=== PATIENT | male | born 1950 | race African-American/Black ===

== ENCOUNTER 2018-03-26 10:37 | Inpatient (IN) | payer MEDICARE ==
[2018-03-26 12:05] LABS: PTT 25.5 SEC (22.9-36.1); Prothrombin Time 13.6 SEC (12.0-14.7)
[2018-03-26 12:14] LABS: #Eosinphils 0.1 thou/uL (0.0-0.7); #Lymphocytes 2.4 thou/uL (1.20-3.40); #Monocytes 0.5 thou/uL (0.11-0.59); #Neutrophils 1.9 thou/uL (1.40-6.50); %Basophils 0.8 % (0.0-1.0); %Eosinophils 1.6 % (0.0-10.0); %Lymphocytes 49.3 % (21.0-51.0); %Monocytes 9.7 % (0.0-10.0); %Neutrophils 38.6 % (42.0-75.0); Hemoglobin 15.3 g/dL (14.0-18.0); Large Platelets SLIGHT; Mean Corpuscular HGB CONC 31.4 g/dL (32.0-36.0); Mean Corpuscular Hemoglobin 27.7 pg (27.0-31.0); Mean Corpuscular Volume 88.3 fL (78.0-98.0); Mean Platelet Volume 10.9 fL (7.4-10.4); PLT Morphology Comment Appears Decreased; Platelet Count 101 thou/uL (130-400); RBC Distribution Width 12.6 % (11.5-14.5); RBC Morphology Normal; Red Blood Cell (RBC) Count 5.51 mill/uL (4.70-6.10); White Blood Cell (WBC) Count 4.9 thou/uL (4.8-10.8)
[2018-03-26 13:41] LABS: ALT (SGPT) 15 U/L (8-55); AST (SGOT) 18 U/L (5-34); Albumin 3.9 g/dL (3.4-4.8); Alkaline Phosphatase 44 U/L (40-150); Anion Gap 13 mmol/L (10-20); BUN (Urea Nitrogen) 10 mg/dL (8.4-25.7); Bilirubin, Total 0.7 mg/dL (0.2-1.2); Calc. Creatinine Clearance 0 mL/min (70-130); Calcium 8.7 mg/dL (7.8-10.44); Carbon Dioxide 20 mmol/L (23-31); Chloride 107 mmol/L (98-107); Estimated GFR-MDRD Greater than 90; Globulin 2.7 g/dL (2.4-3.5); Glucose 91 mg/dL (80-115); Potassium 4.4 mmol/L (3.5-5.1); Protein, Total 6.6 g/dL (5.8-8.1); Sodium 136 mmol/L (136-145)
[2018-03-26] MEDS ORDERED: Acetaminophen 325 MG TAB PO PRN (15:30)
--- NOTE | 2018-03-26 17:34 | HP ---
PRIMARY CARE PHYSICIAN: Jani Monet M.D. CHIEF COMPLAINT: Right facial droop. HISTORY OF PRESENT ILLNESS: Mr. Zimmer is a pleasant 67-year-old gentleman who has no significant p ast medical history other than BPH. He says that on Thursday he started having a headache across the f rontal region of his head. This was while he was watching TV with his . He denies having any ki nd of stress that precipitated the headache. He did not think much of it. He did not have any feeli ngs of dizziness, no weakness, no nausea, no vomiting, or any other symptoms during that time. Howev er, his noticed that his mouth seems to be crooked and his speech was slurred off and on, and he seemed to be drooling from one side of his mouth. His daughter also noted the same thing, but not u ntil the night prior to admission. He also says that he seemed a little bit slow as far as his movem ents and it seems like he did not know where he was putting his arm at times. For this reason, they felt it was best that he come to the emergency room for evaluation. He was evaluated in the ER in [facility] and CT findings were consistent with possible stroke, and [facility]. The patient himself only noted the weakness on the side of the face. H e did not notice any problems with regards to upper extremity or lower extremity weakness. He says n othing like this has ever happened to him before. He does say that he was told that he had a small " pin hole" in his heart. His doctor was aware of this and apparently had an echocardiogram, but this was about 6 years ago. REVIEW OF SYSTEMS: All systems were reviewed and are negative except for that mentioned in the histo ry of present illness. PAST MEDICAL HISTORY: Significant for BPH. PAST SURGICAL HISTORY: Negative. ALLERGIES: No known drug allergies. SOCIAL HISTORY: He is , has 3 children. He smokes about 1/3 of a pack of cigarettes a day an d he smoked for the last 30 years. He also drinks about a 6 pack every day or so. He would like to be a FULL CODE. FAMILY HISTORY: Significant for cerebrovascular accident, hypertension, and diabetes. CURRENT MEDICATIONS: Include Flomax 0.4 mg daily. PHYSICAL EXAMINATION: GENERAL: He is alert and oriented. He appears to be in no acute distress. He is well developed and well nourished. VITAL SIGNS: Blood pressure was 178/63, heart rate 40, respiratory rate of 20, temperature is 97.4. HEENT: His pupils are equal, round, and reactive. Extraocular muscles are intact. His sclerae are anicteric. Throat, there is no erythema, no exudates. On his tympanic membranes, he had quite a bit of wax in the external canal. Therefore, the tympanic membranes were not visualized. NECK: No adenopathy, no bruits. LUNGS: Clear to auscultation bilaterally. There is no wheezing, no rales, no rhonchi. CARDIOVASCULAR: He had a normal S1 and S2. I did not appreciate S3 or S4. His heart rate is bradyc ardic. He did have a significant 2/6 systolic murmur which was heard best in the pulmonic area and i t did radiate across the precordium. There were no gallops, no rubs. ABDOMEN: Soft, it is nontender, nondistended. Positive for bowel sounds. There is no rebound, no g uarding, no appreciable organomegaly. EXTREMITIES: There is no clubbing or cyanosis, no edema. NEUROLOGICAL: He had a left facial droop. His other cranial nerves were intact. His muscle strengt h is 5/5 in both his upper and lower extremities; however, he had a slightly diminished team leader surgery strength and dorsal and plantar flexion on the left upper extremity. The left lower extremity was about equi vocal and there was negative Babinskis. Reflexes were 2+ and symmetric. SKIN AND INTEGUMENT: There was no skin changes. No rash. MUSCULOSKELETAL: There was no calf tenderness, no joint effusion. LABORATORY AND X-RAY: On his EKG, this is by my reading, sinus bradycardia. The heart rate is in th e 40s. He had some voltage criteria for LVH and he did have some T-wave inversions in II, III, and A VF. CT scan is reported as having evidence of a parietal infarct; however, this will need to be revi ewed with the [facility] records. On his CBC, the white blood cell count was 4.9, hemoglobin 15.3, he matocrit was 48.6, platelet count was 101. INR was 1.0. His sodium was 136, potassium 4.4, chloride is 107, CO2 is 20, BUN of 10, creatinine 0.95, glucose was 91. ASSESSMENT AND PLAN: 1. Acute infarct. The patient will be admitted to the Stroke Unit. He has already been given aspir in in the emergency room, full dose. Unfortunately, his symptoms have been going on for the past 4 d ays, so therefore he is out of the window for any acute intervention such as TPA or emergency procedu re. We will get an echocardiogram as well as carotid Doppler, lipid panel to start to help assess hi s risk for future cerebral vascular incident and consult Neurology. 2. For the sinus bradycardia, this appears to be asymptomatic; however, his heart rate has dipped do wn as low as the mid to high 30s. Therefore, in addition to obtaining the echocardiogram, we will al so consult Cardiology for further recommendations. 3. Tobacco abuse. He was counseled in the ER with regards to the need to stop smoking as this is de finitely a cardiovascular risk factor, and we will place him on nicotine replacement as needed. 4. Benign prostatic hypertrophy. We will continue Flomax as he has been previously receiving.
[2018-03-26] MEDS ORDERED: hydrALAZINE 20 MG/ML VIAL SLOW IVP PRN (18:24)
[2018-03-26 18:29] VITALS: BMI 21.7
[2018-03-26] MEDS ORDERED: Enoxaparin Sodium 40 MG/0.4 ML SYRINGE SC SCH (18:45)
[2018-03-26] MEDS: Famotidine 20 MG TAB PO SCH (20:52)
[2018-03-27 05:07] LABS: Anion Gap 8 mmol/L (10-20); BUN (Urea Nitrogen) 13 mg/dL (8.4-25.7); Calc. Creatinine Clearance 68 mL/min (70-130); Calcium 8.9 mg/dL (7.8-10.44); Carbon Dioxide 23 mmol/L (23-31); Chloride 107 mmol/L (98-107); Cholesterol 212 mg/dl (< 200 Desired); Estimated GFR-MDRD Greater than 90; Glucose 93 mg/dL (80-115); HDL Cholesterol 70 mg/dL (>60 Neg Risk); LDL Cholesterol, Calculated 132 mg/dL; Potassium 4.3 mmol/L (3.5-5.1); Sodium 134 mmol/L (136-145); Triglycerides 48 mg/dL (Less than 150)
[2018-03-27 05:08] LABS: Band 1 % (5-11); Eosinophils 4 % (0-10); Hemoglobin 15.1 g/dL (14.0-18.0); Lymphocytes 49 % (21-51); MDiff Complete? YES; Mean Corpuscular HGB CONC 31.5 g/dL (32.0-36.0); Mean Corpuscular Hemoglobin 28.2 pg (27.0-31.0); Mean Corpuscular Volume 89.6 fL (78.0-98.0); Mean Platelet Volume 11.3 fL (7.4-10.4); Monocytes 9 % (0-10); Neutrophil 32 % (42-75); Platelet Count 132 thou/uL (130-400); RBC Distribution Width 12.6 % (11.5-14.5); Reactive Lymphocytes 5 % (0-10); Red Blood Cell (RBC) Count 5.34 mill/uL (4.70-6.10); White Blood Cell (WBC) Count 4.8 thou/uL (4.8-10.8)
--- NOTE | 2018-03-27 08:05 | CON ---
DATE OF CONSULTATION: 03/27/2018 CONSULTING PHYSICIAN: Hospitalist Service. IMPRESSION: Right parietal stroke. PLAN: 1. Aspirin 81 mg per day. 2. Statin. 3. Carotid ultrasound. 4. Echocardiogram. Mr. Zimmer is a 67-year-old man with no known past history other than BPH. He presented to the [facility] Emergency Room with a 4-day history of left facial droop and left-sided weakness. His CT scan of the brain reportedly showed evidence of an acute infarction and was transferred here for further e valuation. He reports having some difficulty swallowing water without choking. Denies any risk fact ors other than he smokes. PAST MEDICAL HISTORY: BPH. ALLERGIES: None. SOCIAL HISTORY: Positive for tobacco. FAMILY HISTORY: Noncontributory. REVIEW OF SYSTEMS: No complaint of headache, nausea, vomiting, chest pain, shortness of breath. PHYSICAL EXAMINATION: GENERAL: He is a thin elderly gentleman in no distress. VITAL SIGNS: Blood pressure 176/68, pulse 43, respirations 16, saturations 91%, temperature 98.4. HEENT: Pupils are equal and reactive. Conjunctivae clear. Oropharynx clear. NECK: Supple, no lymphadenopathy noted. EXTREMITIES: No cyanosis, clubbing, or edema. NEUROLOGIC EXAM: He is alert and cooperative. His speech is fluent and clear. His cranial nerve ex am showed a left facial droop. Motor exam showed a left upper extremity weakness with diminished rap id alternating movements. There is mild lower extremity weakness present on the left as well. Plant ar response was upgoing on the left and downgoing on the right. Gait was not tested. No abnormal mo vements were seen. EKG shows a sinus rhythm. LABORATORY STUDIES: Show unremarkable CBC and coags. Cholesterol level was 212 with a ratio of 3.0. SUMMARY: This is a 67-year-old man with a 4-day-old history of a stroke. He has minimal risk factor s only related to his tobacco use. He actually has a good lipid panel. He has borderline mild hyper tension. I agree with the workup and plan of treatment.
[2018-03-27] MEDS ORDERED: Prevnar 13-Val Conj/PF 0.5 ML SYRINGE IM ONE (09:00)
[2018-03-27] MEDS: Famotidine 20 MG TAB PO SCH ×2 (10:25→20:38)
[2018-03-27] MEDS: Aspirin 325 mg Enteric Coated Tablet PO SCH (10:25)
--- NOTE | 2018-03-27 10:54 | MRI ---
MRI BRAIN WITHOUT CONTRAST: Date: 03/27/18 HISTORY: TIA. COMPARISON: CT brain prior day. FINDINGS: On the diffusion-weighted imaging sequence, corresponding to the recent CT examination, is posterior right MCA territory infarction. There are also numerous smaller peripheral infarctions in the anterio r and mid MCA territory, which has diffusion restriction. These appear subacute in nature. No left ce rebral hemisphere infarctions are present. There is lack of normal flow-void in right M1 segment. Remainder of the [place] of [place] flow-voids a re maintained. On the susceptibility-weighted imaging sequence, there are no abnormal areas of acute hemorrhage. No hydrocephalus. No midline shift or mass effect. Globes are intact. IMPRESSION: Corresponding to the recent CT examination is posterior right MCA territory distribution infarction w ith multiple smaller punctate infarctions through the anterior and mid right MCA territory. This may reflect a thrombus with small emboli of showering thrombus causing incomplete MCA territory infarctio ns. There is also loss of normal flow-void right M1 segment which may reflect thrombosis. CODE T. POS: CITLALY
[2018-03-27] MEDS ORDERED: Lisinopril 5 MG TAB PO SCH (12:00)
[2018-03-27] MEDS: Acetaminophen 325 MG TAB PO PRN (16:26)
--- NOTE | 2018-03-27 16:59 | PDOC.PN ---
- Subjective Encounter Start Date: 03/27/18 Encounter Start Time: 14:20 Mr. Zimmer was seen today in follow-up of an acute CVA. He does not have any complaints today. He denies any weakness, even though this is noted on exam. - Objective Resuscitation Status: Resuscitation Status FULL:Full Resuscitation MAR Reviewed: Yes Vital Signs & Weight: Vital Signs (12 hours) Temp Pulse Pulse Pulse Resp BP BP 03/27/18 15:50 99.4 F 44 L 16 03/27/18 12:09 98.0 F 42 L 16 154/62 H 03/27/18 10:31 41 L 43 L 139/68 03/27/18 08:22 03/27/18 07:45 97.8 F 48 L 18 BP BP Pulse Ox 03/27/18 15:50 135/62 99 03/27/18 12:09 154/62 H 96 03/27/18 10:31 164/69 H 03/27/18 08:22 96 03/27/18 07:45 141/62 H 94 L Weight Weight 134 lb 3.2 oz Result Diagrams: 03/27/18 04:21 03/27/18 04:21 Phys Exam - Physical Examination HEENT: PERRLA, sclera anicteric + left facial droop Respiratory: no wheezing, no rales, no rhonchi, clear to auscultation bilateral Cardiovascular: RRR, no rub bradycardic, 2/6 systolic murmur, no gallop Gastrointestinal: soft, non-tender, no distention, positive bowel sounds Musculoskeletal: no edema, pulses present + left facial droop, Muscle strength in weaker in both the left upper and lower extremity, with some discoordination, and mild left neglect Psychiatric: normal affect, A&O x 3 Dx/Plan (1) Acute ischemic right MCA stroke Code(s): I63.511 - CEREB INFRC D/T UNSP OCCLS OR STENOS OF RIGHT MID CEREB ART Status: Acute (2) Hypertension Code(s): I10 - ESSENTIAL (PRIMARY) HYPERTENSION Status: Acute (3) Dyslipidemia Code(s): E78.5 - HYPERLIPIDEMIA, UNSPECIFIED Status: Acute (4) Bradycardia Code(s): R00.1 - BRADYCARDIA, UNSPECIFIED Status: Acute (5) Tobacco abuse Code(s): Z72.0 - TOBACCO USE Status: Chronic - Plan * Acute Right MCA CVA- will continue aspirin, and will add Lipitor. The stroke appears to be embolic in nature- await Echo results and carotid dopplers * Bradycardia- ? sinus or slow AFIB- EKG appears to be sinus- await Cardiology evaluation * HTN- newly diagnosed- will start Lisinopril * Dyslipidemia- will start Lipitor * Tobacco Abuse- brief counseling was performed * Continue PT/OT .
[2018-03-27] MEDS ORDERED: Atorvastatin Calcium 10 MG TAB PO SCH (21:00)
--- NOTE | 2018-03-27 23:21 | ULT ---
BILATERAL CAROTID DUPLEX ULTRASOUND INCLUDING COLOR AND SPECTRAL DOPPLER IMAGIN03/27/18 HISTORY: 67-year-old male with acute CVA. There is moderate plaque noted bilaterally. PSV right ICA equals 43 cm/s. EDV 6 cm/s. ICA/CCA ratio 0.3. PSV left ICA equals 78 cm/s. EDV 22 cm/s. ICA/CCA ratio 0.7. IMPRESSION: No hemodynamically significant stenosis. Bilateral visual plaque evidence for carotid arteriovascular disease. POS: CITLALY
[2018-03-28] MEDS: Acetaminophen 325 MG TAB PO PRN ×2 (02:52→11:52)
[2018-03-28] MEDS: Aspirin 325 mg Enteric Coated Tablet PO SCH (09:30)
[2018-03-28] MEDS: Famotidine 20 MG TAB PO SCH ×2 (09:34→21:16)
[2018-03-28] MEDS: Lisinopril 5 MG TAB PO SCH (09:36)
--- NOTE | 2018-03-28 15:10 | PDOC.PN ---
- Subjective Encounter Start Date: 03/28/18 Encounter Start Time: 12:15 Mr. Zimmer does not have any complaints. He would like to go home. He does not seem to notice any changes. - Objective Resuscitation Status: Resuscitation Status FULL:Full Resuscitation MAR Reviewed: Yes Vital Signs & Weight: Vital Signs (12 hours) Temp Pulse Pulse Resp BP BP BP 03/28/18 11:56 99.0 F 44 L 20 126/63 03/28/18 11:48 126/63 03/28/18 10:17 39 L 135/61 03/28/18 09:36 41 L 160/59 H 03/28/18 09:10 03/28/18 07:56 98.7 F 46 L 16 160/59 H 03/28/18 04:00 97.5 F L 47 L 19 160/73 H Pulse Ox 03/28/18 11:56 94 L 03/28/18 11:48 03/28/18 10:17 03/28/18 09:36 03/28/18 09:10 94 L 03/28/18 07:56 93 L 03/28/18 04:00 97 Weight Weight 134 lb 3.2 oz Result Diagrams: 03/27/18 04:21 03/27/18 04:21 Phys Exam - Physical Examination HEENT: PERRLA, sclera anicteric + left facial droop Respiratory: no wheezing, no rales, no rhonchi, clear to auscultation bilateral Cardiovascular: RRR, no rub bradycardic, 2/6 systolic murmur Gastrointestinal: soft, non-tender, no distention, positive bowel sounds Musculoskeletal: no edema + Left upper extremity weakness more pronounced today left leg is weak, but he can lift it against resistance Psychiatric: normal affect, A&O x 3 Dx/Plan (1) Acute ischemic right MCA stroke Code(s): I63.511 - CEREB INFRC D/T UNSP OCCLS OR STENOS OF RIGHT MID CEREB ART Status: Acute (2) Hypertension Code(s): I10 - ESSENTIAL (PRIMARY) HYPERTENSION Status: Acute (3) Dyslipidemia Code(s): E78.5 - HYPERLIPIDEMIA, UNSPECIFIED Status: Acute (4) Bradycardia Code(s): R00.1 - BRADYCARDIA, UNSPECIFIED Status: Acute (5) Tobacco abuse Code(s): Z72.0 - TOBACCO USE Status: Chronic - Plan * Acute Right MCA CVA- continue aspirin therapy for now and Lipitor- carotid doppler, and echo results were noted. Concern is for the possible embolic nature of the stroke- So far no evidence of AFIB on his rhythm strips. Discussed with Dr Dhillon. * Sinus Bradycardia- his heart rate continues to range between 35-60. He does not appear symptomatic from this- await Cardiology evaluation * HTN- continue Lisinopril. * Left upper extremity weakness- continue PT/OT- he may need either inpatient Rehab, or Outpatient at the time of discharge
[2018-03-28] MEDS ORDERED: Atorvastatin Calcium 40 MG TAB PO SCH (21:00)
[2018-03-29 07:35] VITALS: TEMP 97.9
[2018-03-29] MEDS: Famotidine 20 MG TAB PO SCH (08:14)
[2018-03-29] MEDS: Aspirin 325 mg Enteric Coated Tablet PO SCH (08:14)
[2018-03-29] MEDS: Lisinopril 5 MG TAB PO SCH (08:14)
--- NOTE | 2018-03-29 08:58 | CON ---
DATE OF CONSULTATION: 03/28/2018 HISTORY OF PRESENT ILLNESS: The patient is a 67-year-old gentleman who presents with a cerebrovascul ar accident and was noted to have a slow heart rate. The patient has no previous cardiac history. T he patient presented to the hospital with acute onset of difficulty with his speech and left-sided we akness. The patient was admitted for further evaluation and noted to have a slow heart rate. The pa tient denies any history of syncope or lightheadedness. The patient states he was very physically ac tive prior to this stroke. The patient denies having any chest discomfort or PND or orthopnea. PAST MEDICAL HISTORY: Benign prostatic hypertrophy. MEDICATION ON ADMISSION: Flomax. ALLERGIES: None. SOCIAL HISTORY: Long history of tobacco and ethanol abuse. FAMILY HISTORY: Positive family history of coronary artery disease. REVIEW OF SYSTEMS: Ten-point system otherwise unremarkable. PHYSICAL EXAMINATION: GENERAL: This is a well-developed gentleman in no acute distress. VITAL SIGNS: Blood pressure 126/63. MUSCULOSKELETAL: No jugular venous distention, no carotid bruits. LUNGS: Clear to auscultation. HEART: Regular rate and rhythm, normal S1, S2, 1/6 systolic murmur. ABDOMEN: Nondistended. EXTREMITIES: Showed no edema. NEUROLOGIC: He has paralysis of the left upper and lower extremities. VASCULAR: Radial pulses 2+. LABORATORY DATA: Sodium 134, potassium 4.3, chloride 107, bicarbonate 23, BUN 13, creatinine is 0.91 , glucose is 93. White blood cell count is 4.8, hemoglobin 15.1, hematocrit 47.8, platelet is 132. INR was 1.0. His carotid Doppler revealed him to have no hemodynamically significant stenosis with bilateral plaqu e. His echocardiogram, normal left ventricular ejection fraction 55-60% with mild aortic stenosis. EKG revealed marked sinus bradycardia with mild voltage criteria for left hypertrophy and T-wave abno rmality suggestive of ischemia. IMPRESSION: 1. Cerebrovascular accident. 2. Marked sinus bradycardia, asymptomatic. 3. Mild aortic stenosis. 4. Ethanol and tobacco abuse. 5. Ethanol abuse. This gentleman presents with a cerebrovascular accident. From a cardiac standpoint, he has marked br adycardia, but is asymptomatic. We will check the patient's TSH level. The patient has been started on aspirin and Lipitor. We will increase the dose of his Lipitor. We will plan on placing a LINQ d evice to make sure that he is not having paroxysmal atrial fibrillation as the cause of cerebral acci dent. We will follow this patient with you through his hospitalization.
[2018-03-29] MEDS ORDERED: Lidocaine 1% w/Epinephrine 1:100K 30 ML VIAL ONE (10:23)
[2018-03-29 12:25] VITALS: BP 132/63
--- NOTE | 2018-03-29 13:09 | DIS ---
PRIMARY CARE PHYSICIAN: Dr. Jani Monet DATE OF ADMISSION: 03/26/2018 DATE OF DISCHARGE: 03/29/2018 DISCHARGE DIAGNOSES: 1. Acute thrombotic right middle cerebral artery distribution stroke. 2. Bradycardia, asymptomatic. 3. Essential hypertension. 4. Hyperlipidemia. 5. Ongoing tobacco abuse. CONSULTATIONS: 1. Neurology, Dr. Micheal Smyth. 2. Cardiology, Dr. Shahram Dhillon. PROCEDURES: 1. A LINQ implantation on 03/28/2018. 2. Echocardiogram 03/27/2018 showed EF of 50-55%, thickened aortic leaflets. No evidence of thrombu s and mild and AI. HISTORY AND PHYSICAL: Mr. Zimmer is a 67-year-old gentleman who presented to the emergency departme nt 03/26/2018 for complaints of right facial droop. He was having a headache in the frontal region a nd watching TV with his and notes that his mouth seemed to be crooked and his speech was sl urred. EMS was activated and he was taken to the emergency department for evaluation where CT scan i [facility] showed findings consistent with possible stroke and he was transferred to our facility. We were called for admission. HOSPITAL COURSE: The patient was seen and examined by Dr. Omar Corey and placed in inpatient status . The patient was started on atorvastatin, aspirin, and Neurology consult was obtained. Speech ther apy, occupational therapy, and physical therapy were consulted as well. The patient's symptoms remained stable. He was cleared to eat and he was working with PT and OT. It was recommended he go to rehabilitation and ultimately his family and he chose a swing bed at the [facility]. Carotid Doppler was done that was negative. Echocardiogram was done that was negative and Cardiology was consulted due to bradycardia. Dr. Dhillon recommended a LINQ implantation in case this was par oxysmal atrial fibrillation. PHYSICAL EXAMINATION: The patient was seen and examined on the day of discharge. He had persistent left-sided facial droop. Discharge condition and disposition were discussed with the patient and his face to face at the bedside. DISCHARGE MEDICATIONS: 1. Aspirin 325 mg daily. 2. Atorvastatin 40 mg p.o. at bedtime. 3. Lisinopril 5 mg daily. 4. Tylenol 650 mg p.o. q.4. p.r.n. 5. Flomax 0.4 mg daily. FOLLOWUP APPOINTMENTS: 1. Dr. Monet at the swing bed. 2. Dr. Smyth in 2-3 weeks. DISCHARGE CONDITION: Stable. DISPOSITION: Discharged to [facility] for rehabilitation. DISCHARGE ACTIVITY: As tolerated. DISCHARGE DIET: Heart healthy diet recommended.
--- NOTE | 2018-03-29 17:03 | EKG ---
Test Reason : Blood Pressure : / mmHG Vent. Rate : 043 BPM Atrial Rate : 043 BPM P-R Int : 152 ms QRS Dur : 092 ms QT Int : 476 ms P-R-T Axes : 049 -20 -46 degrees QTc Int : 402 ms Poor data quality, interpretation may be adversely affected Marked sinus bradycardia Moderate voltage criteria for LVH, may be normal variant Abnormal ECG When compared with ECG of 26-MAR-2018 11:20, (Unconfirmed) Criteria for Septal infarct are no longer Present Nonspecific T wave abnormality now evident in Anterolateral leads Confirmed by DR. Lenard ENRIQUEZ ([id number]) on 03/29/2018 5:02:44 PM Referred By: DARNELL Confirmed By:DR. Lenard ENRIQUEZ
--- NOTE | 2018-03-30 22:21 | CCL ---
DATE OF SERVICE: 03/29/2018 PREPROCEDURE DIAGNOSIS: Cryptogenic CVA. PROCEDURES PERFORMED: Insertion of permanent steam bone press tender [employer]onic model [id number]. My hint patient monitor serial [id number]. COMPLICATIONS: None. PROCEDURE SUMMARY: The patient was taken to the procedure area prepped and draped in the usual sterile fashion. Lidocai ne was utilized for local anesthesia. Incision was made at the fourth intercostal space. The left p ectoral region utilizing a skin puncture tool. The insertable steam bone press tender Linq was inserted thro ugh the puncture site with the Linq insertion tool. Dermabond was then applied to the site in the s terile fashion. RECOMMENDATIONS: Continue to monitor. Wound check in 1 week.
== END 2018-03-29 13:37 | disposition swing bed (61) | DRG 42 ==
LOC: ERS 10:37 → 2SE 13:25
PROVIDERS: ADMIT Internal Medicine; ATTEND Internal Medicine
PROC: 0JH632Z Insertion of Monitoring Device into Chest Subcutaneous Tissue and Fascia, Percutaneous Approach (ICD-10-PCS; principal; 2018-03-29)
DX: I63.311 Cerebral infarction due to thrombosis of right middle cerebral artery (principal); R29.810 Facial weakness; N40.0 Benign prostatic hyperplasia without lower urinary tract symptoms; F17.210 Nicotine dependence, cigarettes, uncomplicated; R00.1 Bradycardia, unspecified; I10 Essential (primary) hypertension; E78.5 Hyperlipidemia, unspecified; F10.10 Alcohol abuse, uncomplicated
CPT/HCPCS: 33282; 36415; 70551; 80048; 80053; 80061; 84443; 85025; 85610; 85730; 93005; 93010; 93306; 93880; C1764; G8978-GP-CK; G8979-GP-CI; G8987-GO-CK; G8988-GO-CI; G8996-GN-CJ; G8997-GN-CH; J1650; J2001